=== PATIENT | female | born 1995 | race Caucasian/White ===

== ENCOUNTER 2017-11-13 08:24 | Day surgery (SDC) | payer OTHER ==
[~2017-11-13] VITALS: Ht 144.8 cm; Wt 87.8 kg
[~2017-11-13 08:24] MED LIST: SODIUM CHLORIDE 0.9% 1,000 ML IV ONE
[2017-11-13] MEDS ORDERED: FERSL PO (09:00)
[2017-11-13] MEDS ORDERED: LACT1CAP70 PO (09:00)
[2017-11-13] MEDS ORDERED: LORA0.5T2 PO (09:00)
[2017-11-13] MEDS ORDERED: OMEP20 PO (09:00)
[2017-11-13] MEDS ORDERED: HALO1 PO (09:00)
[2017-11-13] MEDS ORDERED: LORA5SOL75 PO (09:00)
[2017-11-13] MEDS ORDERED: TRAZ-144 PO (09:00)
[2017-11-13] MEDS ORDERED: RANI150T7 PO (09:00)
== END 2017-11-13 11:10 | disposition home or self-care (01) ==
LOC: SURGERY 08:24
PROVIDERS: ATTEND Internal Medicine Gastroenterology
DX: K29.50 Unspecified chronic gastritis without bleeding (principal); B96.81 Helicobacter pylori [H. pylori] as the cause of diseases classified elsewhere; K21.9 Gastro-esophageal reflux disease without esophagitis; F32.9 Major depressive disorder, single episode, unspecified; Q90.9 Down syndrome, unspecified; K90.0 Celiac disease; G47.33 Obstructive sleep apnea (adult) (pediatric); Z90.89 Acquired absence of other organs; Z88.0 Allergy status to penicillin; Z98.890 Other specified postprocedural states; Z79.899 Other long term (current) drug therapy
CPT/HCPCS: 43239; 88305; 88312; C1769; J7030

== ENCOUNTER 2024-06-08 09:02 | Day surgery (SDC) | payer OTHER ==
[~2024-06-08] VITALS: Ht 144.8 cm; Wt 84.9 kg
[~2024-06-08 09:02] MED LIST changes: +FERR300L PO; +HALO1TAB2 PO; +LACT1CAP70 PO; +LORA-999 PO; +LORA5SOL75 PO; +OMEP20 PO; +RANI150T7 PO; -SODIUM CHLORIDE 0.9% 1,000 ML IV ONE; +SODIUM CHLORIDE 0.9% 1,000 ML ONE; +TRAZ-252 PO
[2024-06-08] MEDS: LIDOCAINE/PRILOCAINE 2.5-2.5% 30 GM CREAM TP ONE (10:08)
[2024-06-08] MEDS: SODIUM CHLORIDE 0.9% 1,000 ML IV ONE (10:31)
[2024-06-08] MEDS ORDERED: GLYCOPYRROLATE 0.2 MG/ML VIAL IM ONE (12:00)
[2024-06-08] MEDS ORDERED: LIDOCAINE/PF 1% 2 ML VIAL IM ONE (12:00)
[2024-06-08] MEDS ORDERED: PROPOFOL 1% 20 ML VIAL IVP ONE (12:00)
== END 2024-06-08 12:15 | disposition home or self-care (01) ==
LOC: SURGERY 09:02
PROVIDERS: ATTEND Internal Medicine
DX: R13.19 Other dysphagia (principal); K21.9 Gastro-esophageal reflux disease without esophagitis; K29.70 Gastritis, unspecified, without bleeding; J45.909 Unspecified asthma, uncomplicated; G47.33 Obstructive sleep apnea (adult) (pediatric); Z79.899 Other long term (current) drug therapy; Z90.89 Acquired absence of other organs; Z98.890 Other specified postprocedural states; Z88.0 Allergy status to penicillin
CPT/HCPCS: 88305; 88312; 88313; J2704; J3490; J7030